=== PATIENT | female | born 1980 | race Hispanic/Latino ===

== ENCOUNTER 2024-07-28 16:58 | Outpatient (CLI) | payer BC | END 2024-07-28 16:59 | disposition home or self-care (01) | LOC: NAV RAD 16:58 | PROVIDERS: ATTEND Nurse Practitioner Family | DX: M25.511 Pain in right shoulder (principal); R29.898 Other symptoms and signs involving the musculoskeletal system; M47.812 Spondylosis without myelopathy or radiculopathy, cervical region | CPT/HCPCS: 72040 ==